=== PATIENT | female | born 1945 | race Caucasian/White ===

== ENCOUNTER → 2016-11-13 | Outpatient (CLI) | payer OTHER | LOC: BMCIMAGING 15:13 | PROVIDERS: ATTEND Family Medicine | DX: Z12.31 Encounter for screening mammogram for malignant neoplasm of breast (principal) | CPT/HCPCS: G0202 ==

== ENCOUNTER → 2017-06-27 | Outpatient (CLI) | payer OTHER | LOC: FIMAGING 13:58 | DX: M41.84 Other forms of scoliosis, thoracic region (principal); M41.86 Other forms of scoliosis, lumbar region; M40.294 Other kyphosis, thoracic region; M47.892 Other spondylosis, cervical region ==

== ENCOUNTER → 2017-09-22 | Outpatient (CLI) | payer OTHER | LOC: FIMAGING 10:39 | PROVIDERS: ATTEND Orthopaedic Surgery | DX: Z01.818 Encounter for other preprocedural examination (principal); M16.0 Bilateral primary osteoarthritis of hip ==

== ENCOUNTER 2017-10-13 06:02 | Inpatient (IN) | payer OTHER ==
[~2017-10-13 06:02] MED LIST: ROPIVACAINE 0.2% 80 MG, EPINEPHrine 0.2 MG, KETOROLAC TROMETHAMINE 30 MG, morphINE 10 M... IU ONE; TRANEXAMIC ACID 1,000 MG in NS 100 ML IV ONE
[2017-10-13] MEDS ORDERED: FAMOTIDINE 20 MG TAB PO ONE (06:06)
[2017-10-13] MEDS ORDERED: ceFAZolin 2 GM/DEXTROSE 100 ML IV ONE (06:06)
[2017-10-13] MEDS ORDERED: ACETAMINOPHEN 325 MG TAB PO ONE (06:06)
[2017-10-13] MEDS ORDERED: LR 1,000 ML IV ONE (06:07)
[2017-10-13] MEDS ORDERED: LIDOCAINE 1% 2 ML INJ ID PRN (06:07)
--- NOTE | 2017-10-13 06:31 | PDHPUP ---
History & Physical Update H&P update statement: This history and physical update is based on an assessment of the patient which was completed after admission or registration (within 24 hours), but prior to the surgery/procedure. H&P update: no change in patient's condition since H&P completed
--- NOTE | 2017-10-13 06:32 | PDIAF ---
- Diagnosis Diagnosis: right hip djd Code Status: Full Code - Medication Management Discharge Medications: Medications to Continue on Transfer Alendronate Sodium [Fosamax 70 MG (*)] 70 mg PO SA@0700 09/29/17 [Last Taken Unknown] Cholecalciferol Vit D3 [Vitamin D3 (*)] 1,000 units PO DAILY 09/29/17 [Last Taken Unknown] Magnesium Oxide [Magnesium Oxide 400 mg (*)] 400 mg PO DAILY 09/29/17 [Last Taken Unknown] Multivitamins [Multivitamin (*)] 1 each PO DAILY 09/29/17 [Last Taken Unknown] Sertraline HCl [Zoloft 50mg (*)] 50 mg PO DAILY 09/29/17 [Last Taken Unknown] Warfarin Sodium [Coumadin 2MG (*)] 2 mg PO DAILY 09/29/17 [Last Taken Unknown] Warfarin Sodium [Coumadin 5MG (*)] 5 mg PO DAILY 09/29/17 [Last Taken Unknown] celeCOXIB [CeleBREX] 100 mg PO TID 09/29/17 [Last Taken Unknown] Discharge Medications: Refer to the Discharge Home Medication list for PRN reason. - Orders Services needed: Physical Therapy Diet Recommendation: no restrictions on diet Diet Texture: Regular Texture Diet Additional Instructions: TOTAL JOINT ARTHROPLASTY DISCHARGE INSTRUCTIONS 1. Your surgeon follows the [facility] protocol for reducing your risk of DVT (blood clots) following surgery. Medication will be ordered to prevent blood clots. A sudden increase in calf pain and/or swelling could indicate a blood clot in your leg. If this occurs, please call your surgeon or his/her insurance claims assistant. An ultrasound of the leg may be necessary to diagnose a blood clot. If you have conditions that make you a higher risk for blood clots, your surgeon may use more aggressive ways to prevent them. Notify your surgeon if you think you are a high risk for blood clots. 2. Wear your white surgical stockings (LAURA hose) for 2 weeks. This decreases your swelling and may help prevent blood clots. It is ok to remove LAURA hose at night time to give your legs a break. 3. Swelling and bruising in the surgical leg is common. If you feel that it is excessive, please notify your surgeon. 4. Elevate your surgical leg with the ankle above the hip several times every day. Please keep the leg straight when you elevate by putting pillows under your foot. Do not put pillows under your knee. This will make being able to fully straighten more difficult. This is uncomfortable, but try to do it as much as possible. 5. For total knee replacements use compressive wrap on your knee for 3-5 days after surgery, then you can discontinue it. 6. Use a walker or crutches for 1-2 weeks. Progress your weight-bearing as tolerated. You may start to use a cane when you feel stable and safe. 7. You will receive physical therapy instructions in the hospital. Continue those exercises at home. There are additional exercises in the total joint booklet you were given before surgery. Outpatient physical therapy will begin 7- 10 days after surgery. Please schedule this in advance. 8. Use ice on your knee at least 3-5 times every day for 30 minutes. This helps reduce pain and swelling. Also use it at night before falling asleep. 9. Leave your surgical dressing in place for 2 weeks. Your dressing is water resistant, but not waterproof. Cover it with Saran Wrap or Eisgg-s-Rjrj before showering. You may shower as soon as you feel safe entering a shower. If you notice bleeding from your incision 2 or 3 days after surgery, please notify your surgeon. 10. Due to narcotics, decreased activity and altered diet, most patients experience constipation after surgery. Use aplt-fnw-qyzzzjk stool softeners while you are on narcotics. 11. You may drive a car when you are comfortable bearing weight, have good muscular control of your leg and are off narcotics. This usually occurs 2-4 weeks after surgery, depending on which leg was operated on. 12. If there are questions not addressed here, please refer the [facility] book given for more information. If you still have questions, please contact your surgeon s office. 13. If you have a life-threatening emergency, please call 911 and go to the emergency room immediately. For non-life threatening emergencies, please call your physicians office for advice before going to the emergency room. - Follow Up Care Current Providers and Referrals: German Foley MD [Medical Doctor] - Nusrat Rodriguez MD [Primary Care Provider] -
[2017-10-13] MEDS ORDERED: ceFAZolin 1 GM/5 ML SYR ONE ×2 (06:44→08:03)
[2017-10-13] MEDS ORDERED: MIDAZOLAM 2 MG/2 ML VIAL ONE (07:03)
[2017-10-13] MEDS ORDERED: PROPOFOL 200 MG/20 ML VIAL ONE (07:04)
[2017-10-13] MEDS ORDERED: LIDOCAINE 2% 5 ML SDV ONE (07:04)
--- NOTE | 2017-10-13 07:08 | PDANEPAE ---
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 - Pulmonary History Hx COPD: No Hx Asthma/Reactive Airway Disease: No Hx Recent Upper Respiratory Infection: No Hx Oxygen in Use at Home: No Hx Sleep Apnea: No Sleep Apnea Screening Result - Last Documented: Negative - Neurologic History Hx Cerebrovascular Accident: No Hx Seizures: No Hx Dementia: No - Endocrine History Hx Diabetes: No - Renal History Hx Renal Disorders: No - Liver History Hx Hepatic Disorders: No - Neurological & Psychiatric Hx Hx Neurological and Psychiatric Disorders: Yes Neurological / Psychiatric History Comment: depression - Cancer History Hx Cancer: No - Congenital Disorder History Hx Congenital Disorders: No - GI History Hx Gastrointestinal Disorders: No - Other Health History Other Health History: compression in lower thoracic region. scoliosis - Chronic Pain History Chronic Pain: Yes (lower thoracic and lumbar regions) - Surgical History Prior Surgeries: achilles tendon repair 2017 ANE Review of Systems Review of Systems: - Exercise capacity METS (RN): 4 METS ANE Patient History - Allergies Allergies/Adverse Reactions: bee venom protein (honey bee) Allergy (Verified 10/03/17 10:44) Other-Enter Comments cat dander Allergy (Verified 10/03/17 10:44) Other-Enter Comments - Home Medications Home Medications: Alendronate Sodium [Fosamax 70 MG (*)] 70 mg PO SA@0700 09/29/17 [Last Taken ] Cholecalciferol Vit D3 [Vitamin D3 (*)] 1,000 units PO DAILY 09/29/17 [Last Taken 10/06/17] Magnesium Oxide [Magnesium Oxide 400 mg (*)] 400 mg PO DAILY 09/29/17 [Last Taken 10/06/17] Multivitamins [Multivitamin (*)] 1 each PO DAILY 09/29/17 [Last Taken 10/06/17] Sertraline HCl [Zoloft 50mg (*)] 50 mg PO DAILY 09/29/17 [Last Taken 10/12/17 09 :00] Warfarin Sodium [Coumadin 2MG (*)] 2 mg PO DAILY 09/29/17 [Last Taken 10/06/17] Warfarin Sodium [Coumadin 5MG (*)] 5 mg PO DAILY 09/29/17 [Last Taken 10/06/17] celeCOXIB [CeleBREX] 100 mg PO TID 09/29/17 [Last Taken 10/06/17] - NPO status NPO Since - Liquids (Date): 10/12/17 NPO Since - Liquids (Time): 22:00 NPO Since - Solids (Date): 10/12/17 NPO Since - Solids (Time): 21:00 - Smoking Hx Smoking Status: Never smoked - Family Anes Hx Family Hx Anesthesia Complications: none ANE Labs/Vital Signs - Vital Signs Blood Pressure: 149/68 Heart Rate: 92 Respiratory Rate: 16 O2 Sat (%): 96 Height: 167.64 cm Weight: 56.699 kg ANE Physical Exam - Airway Neck exam: FROM Mallampati Score: Class 1 Mouth exam: normal dental/mouth exam - Pulmonary Pulmonary: no respiratory distress, no rales or rhonchi, clear to auscultation - Cardiovascular Cardiovascular: regular rate and rhythym, no murmur, rub, or gallop ANE Anesthesia Plan Anesthesia Plan: spinal
[2017-10-13 07:12] LABS: INR 0.87 (0.83-1.16)
[2017-10-13] MEDS ORDERED: PHENYLEPHRINE HCL 100 MCG/ML SYR ONE (07:34)
[2017-10-13] MEDS ORDERED: fentaNYL 100 MCG/2 ML INJ IVP PRN (07:40)
[2017-10-13] MEDS ORDERED: LR 500 ML IV PRN (07:40)
[2017-10-13] MEDS ORDERED: BUPIVACAINE/DEXTROSE 7.5MG/ML 2 ML SPINAL AMP SP ONE (07:40)
[2017-10-13] MEDS ORDERED: PHENYLEPHRINE HCL 100 MCG/ML SYR IVP PRN (07:40)
[2017-10-13] MEDS ORDERED: ONDANSETRON 4 MG/2 ML VIAL IVP PRN ×2 (07:40→08:48)
[2017-10-13] MEDS ORDERED: NALOXONE HCL 0.4 MG/ML INJ IVP PRN (07:40)
[2017-10-13] MEDS ORDERED: DEXAMETHASONE 4 MG/ML VIAL IVP PRN (07:40)
[2017-10-13] MEDS ORDERED: ALBUTEROL 3 ML DEYVIAL IH PRN (07:40)
[2017-10-13] MEDS ORDERED: POLYETHYLENE GLYCOL 3350 17 GM PKT PO PRN (08:48)
[2017-10-13] MEDS ORDERED: ONDANSETRON DISINTEGRATING 4 MG TAB PO PRN (08:48)
[2017-10-13] MEDS ORDERED: LACTULOSE 20 GM/30 ML UDCUP PO PRN (08:48)
[2017-10-13] MEDS ORDERED: TEMAZEPAM 15 MG CAP PO PRN (08:48)
[2017-10-13] MEDS ORDERED: DIPHENOXYLATE/ATROPINE LOMOTIL 1 TAB PO PRN (08:48)
[2017-10-13] MEDS ORDERED: oxyCODONE IR 5 MG TAB PO PRN (08:48)
[2017-10-13] MEDS ORDERED: PROMETHAZINE HCL 25 MG/ML INJ IVP PRN (08:48)
[2017-10-13] MEDS ORDERED: MAGNESIUM HYDROXIDE 30 ML UDCUP PO PRN (08:48)
[2017-10-13] MEDS ORDERED: BISACODYL 10 MG SUPP PR PRN (08:48)
[2017-10-13] MEDS ORDERED: PROMETHAZINE HCL 25 MG SUPPR PR PRN (08:48)
[2017-10-13] MEDS ORDERED: diphenhydrAMINE 25 MG CAP PO PRN (08:48)
[2017-10-13] MEDS ORDERED: METOCLOPRAMIDE 10 MG/2 ML VIAL IVP PRN (08:48)
--- NOTE | 2017-10-13 08:52 | POSTOPPROG ---
Post Op Note Date of Operation: 10/13/17 Surgeon: German Foley Plastic Joint Maker: carrington Anesthesiologist: yari Anesthesia: Spinal Pre-op Diagnosis: right hip djd Post-op Diagnosis: same Indication: same Procedure: right abigail Inf/Abcess present in the surg proc area at time of surgery?: No Depth: Deep Incisional (Fascial) EBL: 100-500
[2017-10-13] MEDS ORDERED: WARFARIN SODIUM 5 MG TAB PO SCH (09:00)
[2017-10-13] MEDS: MAGNESIUM OXIDE 400 MG TAB PO SCH (09:00)
[2017-10-13] MEDS ORDERED: LR 1,000 ML IV SCH (09:00)
[2017-10-13] MEDS ORDERED: WARFARIN SODIUM 2 MG TAB PO SCH (09:00)
[2017-10-13] MEDS: TRANEXAMIC ACID 650 MG TAB PO SCH ×2 (09:53→18:16)
[2017-10-13] MEDS: SERTRALINE HCL 50 MG TAB PO SCH (09:53)
[2017-10-13] MEDS: MULTIVITAMINS 1 EACH TAB PO SCH (09:53)
[2017-10-13] MEDS: SENNOSIDES/DOCUSATE SODIUM TAB PO SCH ×2 (09:53→20:30)
[2017-10-13] MEDS: CHOLECALCIFEROL VIT D3 1,000 UNITS TAB PO SCH (09:53)
--- NOTE | 2017-10-13 10:49 | PDMN ---
Medical Necessity Medical necessity: IP surgery per [facility] cpt [id number]
[2017-10-13] MEDS: traMADol 50 MG TAB PO PRN ×2 (10:50→20:30)
--- NOTE | 2017-10-13 11:30 | POSTANESTH ---
Post Anesthetic Evaluation Cardiovascular Status: Normal, Stable, Similar to Pre-Op Cond Respiratory Status: Normal, Stable, Similar to Pre-op Cond. Level of Consciousness/Mental Status: Can Participate in Eval Pain Control: Adequate, Prn Tx Ordered Nausea/Vomiting Control: Adequate, Prn Tx Ordered Complications Possibly Related to Anesthesia: None Noted
[2017-10-13] MEDS: CYCLOBENZAPRINE 10 MG TAB PO PRN ×2 (12:07→20:30)
[2017-10-13] MEDS: ACETAMINOPHEN 325 MG TAB PO SCH ×2 (13:59→18:13)
[2017-10-13] MEDS: ceFAZolin 2 GM/DEXTROSE 100 ML IV SCH ×2 (14:00→22:19)
[2017-10-13] MEDS: FAMOTIDINE 20 MG TAB PO SCH (20:29)
[2017-10-13] MEDS ORDERED: ASPIRIN 325 MG TAB PO SCH (21:00)
[2017-10-14] MEDS: ACETAMINOPHEN 325 MG TAB PO SCH ×2 (00:14→05:38)
[2017-10-14] MEDS: TRANEXAMIC ACID 650 MG TAB PO SCH (00:14)
--- NOTE | 2017-10-14 07:33 | PDIAF ---
- Diagnosis Diagnosis: right hip djd Code Status: Full Code - Medication Management Discharge Medications: Medications to Continue on Transfer Alendronate Sodium [Fosamax 70 MG (*)] 70 mg PO SA@0700 09/29/17 [Last Taken ] Cholecalciferol Vit D3 [Vitamin D3 (*)] 1,000 units PO DAILY 09/29/17 [Last Taken 10/06/17] Magnesium Oxide [Magnesium Oxide 400 mg (*)] 400 mg PO DAILY 09/29/17 [Last Taken 10/06/17] Multivitamins [Multivitamin (*)] 1 each PO DAILY 09/29/17 [Last Taken 10/06/17] Sertraline HCl [Zoloft 50mg (*)] 50 mg PO DAILY 09/29/17 [Last Taken 10/12/17 09 :00] Warfarin Sodium [Coumadin 2MG (*)] 2 mg PO DAILY 09/29/17 [Last Taken 10/06/17] Warfarin Sodium [Coumadin 5MG (*)] 5 mg PO DAILY 09/29/17 [Last Taken 10/06/17] celeCOXIB [CeleBREX] 100 mg PO TID 09/29/17 [Last Taken 10/06/17] Enoxaparin [Lovenox 40 MG (*)] 40 mg SC DAILY #5 syr 10/14/17 [Last Taken Unknown] oxyCODONE IR [Oxycodone Ir (*)] 5 - 10 mg PO Q3HRS PRN #40 tab 10/14/17 [Last Taken Unknown] traMADol [Ultram 50 mg (*)] 50 mg PO Q6HRS PRN #60 tab 10/14/17 [Last Taken Unknown] Discharge Medications: Refer to the Discharge Home Medication list for PRN reason. - Orders Services needed: Physical Therapy Diet Recommendation: no restrictions on diet Diet Texture: Regular Texture Diet Additional Instructions: TOTAL JOINT ARTHROPLASTY DISCHARGE INSTRUCTIONS 1. Your surgeon follows the [facility] protocol for reducing your risk of DVT (blood clots) following surgery. Medication will be ordered to prevent blood clots. A sudden increase in calf pain and/or swelling could indicate a blood clot in your leg. If this occurs, please call your surgeon or his/her payroll human resources assistant. An ultrasound of the leg may be necessary to diagnose a blood clot. If you have conditions that make you a higher risk for blood clots, your surgeon may use more aggressive ways to prevent them. Notify your surgeon if you think you are a high risk for blood clots. 2. Wear your white surgical stockings (LAURA hose) for 2 weeks. This decreases your swelling and may help prevent blood clots. It is ok to remove LAURA hose at night time to give your legs a break. 3. Swelling and bruising in the surgical leg is common. If you feel that it is excessive, please notify your surgeon. 4. Elevate your surgical leg with the ankle above the hip several times every day. Please keep the leg straight when you elevate by putting pillows under your foot. Do not put pillows under your knee. This will make being able to fully straighten more difficult. This is uncomfortable, but try to do it as much as possible. 5. For total knee replacements use compressive wrap on your knee for 3-5 days after surgery, then you can discontinue it. 6. Use a walker or crutches for 1-2 weeks. Progress your weight-bearing as tolerated. You may start to use a cane when you feel stable and safe. 7. You will receive physical therapy instructions in the hospital. Continue those exercises at home. There are additional exercises in the total joint booklet you were given before surgery. Outpatient physical therapy will begin 7- 10 days after surgery. Please schedule this in advance. 8. Use ice on your knee at least 3-5 times every day for 30 minutes. This helps reduce pain and swelling. Also use it at night before falling asleep. 9. Leave your surgical dressing in place for 2 weeks. Your dressing is water resistant, but not waterproof. Cover it with Saran Wrap or Kzjsn-l-Shfq before showering. You may shower as soon as you feel safe entering a shower. If you notice bleeding from your incision 2 or 3 days after surgery, please notify your surgeon. 10. Due to narcotics, decreased activity and altered diet, most patients experience constipation after surgery. Use vndc-ghb-epryfbc stool softeners while you are on narcotics. 11. You may drive a car when you are comfortable bearing weight, have good muscular control of your leg and are off narcotics. This usually occurs 2-4 weeks after surgery, depending on which leg was operated on. 12. If there are questions not addressed here, please refer the [facility] book given for more information. If you still have questions, please contact your surgeon s office. 13. If you have a life-threatening emergency, please call 911 and go to the emergency room immediately. For non-life threatening emergencies, please call your physicians office for advice before going to the emergency room. - Follow Up Care Current Providers and Referrals: German Foley MD [Medical Doctor] - Nusrat Rodriguez MD [Primary Care Provider] -
[2017-10-14 07:35] VITALS: BP 111/54
--- NOTE | 2017-10-14 07:37 | SOAPPROG ---
SOAP Progress Note Assessment/Plan: Assessment: s/p right abigail Plan:stable d/c home when cleared by pt dvt precautions reviewed will use lovenox for 5 days and restart coumadin 10/14/17 07:34 Subjective: doing well no focal complaints no cp or sob Objective: Vital Signs Temp Pulse Resp BP Pulse Ox 36.5 C 85 16 124/53 H 89 L 10/14/17 04:00 10/14/17 04:00 10/14/17 04:00 10/14/17 04:00 10/14/17 04:00 Laboratory Results 10/14/17 04:39 10/13/17 10/14/17 10/15/17 05:59 05:59 05:59 Intake Total 3485 Output Total 1550 Balance 1935 PT 12.0 SEC (12.0-15.0) 10/13/17 06:50 INR 0.87 (0.83-1.16) 10/13/17 06:50 dressing changed intact pfdf,ehl toes warm and pink neg homans kaci xrays stable no fx, concentric reduction ICD10 Worksheet Patient Problems: Problems Problem Status Onset Hip arthritis Acute - ICD10 Problem Qualifiers (1) Hip arthritis
--- NOTE | 2017-10-14 08:52 | ASMTLACE ---
IVIS Length of stay for Answers: 2 days current admission Acuity / Level of Answers: Yes Care: Did the patient have an inpatient admission? Comorbidities - select Answers: Coronary Artery Disease all that apply Opioid dependence / Chronic pain # of Emergency department Answers: 0 visits in the last 6 months Social determinants Answers: Mental health diagnosis (anxiety, depression, pers onality disorders, etc.) Score: 14 Date Signed: 10/14/2017 08:51 AM Electronically Signed By:Rosetta Rehman
[2017-10-14] MEDS ORDERED: WARFARIN SODIUM 2 MG TAB PO SCH (09:00)
[2017-10-14] MEDS ORDERED: WARFARIN SODIUM 5 MG TAB PO SCH (09:00)
[2017-10-14] MEDS ORDERED: ENOXAPARIN 40 MG/0.4 ML SYR SC SCH (09:00)
[2017-10-14] MEDS: SENNOSIDES/DOCUSATE SODIUM TAB PO SCH (09:12)
[2017-10-14] MEDS: SERTRALINE HCL 50 MG TAB PO SCH (09:12)
[2017-10-14] MEDS: CHOLECALCIFEROL VIT D3 1,000 UNITS TAB PO SCH (09:12)
[2017-10-14] MEDS: MULTIVITAMINS 1 EACH TAB PO SCH (09:13)
[2017-10-14] MEDS: MAGNESIUM OXIDE 400 MG TAB PO SCH (09:13)
[2017-10-14] MEDS: FAMOTIDINE 20 MG TAB PO SCH (09:13)
[2017-10-14] MEDS ORDERED: PNEUMOC 13-VAL CONJ-DIP CRM/PF 0.5 ML SYR IM ONE (10:24)
[2017-10-14] MEDS: traMADol 50 MG TAB PO PRN (10:51)
--- NOTE | 2017-10-14 15:57 | ASDISCHSUM ---
Discharge Information Plan Status:Home with Home Health Medically Cleared to Leave: Discharge Date:10/14/2017 11:27 AM D/C Disposition:Home Health Service ADT D/C Disposition:Home, Routine, Self-Care Projected Discharge Date:10/14/2017 11:00 AM Transportation at D/C: Discharge Delay Reason: Follow-Up Date:10/14/2017 11:00 AM Discharge Slot: Final Diagnosis: Placement Information Referral Type:*Home Health Care Services Referral ID:[id number] Provider Name:[facility] [place] Address 1:[address] [place] [address] Address 2: City:[place] Selection Factors: State:[place] Patient Contact Information Contact Name:ELVA Relationship:Friend Address:[address] [place] [address] Work Phone: City:[place] Alternate Phone: State/Zip Code:[place] [address] Email: Financial Information Financial Class:Medicare Primary Plan Desc:MEDICARE INPATIENT Primary Plan Number:[id number] Secondary Plan Desc:FRANSICO RODRIGUEZ PPO [employer]IV [employer] Secondary Plan Number:[id number] Assessment Information LACE LACE Length of stay for Answers: 2 days current admission Acuity / Level of Answers: Yes Care: Did the patient have an inpatient admission? Comorbidities - select Answers: Coronary Artery Disease all that apply Opioid dependence / Chronic pain # of Emergency department Answers: 0 visits in the last 6 months Social determinants Answers: Mental health diagnosis (anxiety, depression, pers onality disorders, etc.) Score: 14 Date Signed: 10/14/2017 08:51 AM Electronically Signed By:Rosetta Remhan [facility] CM Progress Note CM Note CM Note Notes: PT rec home care. Pt medically stable for d/c with [facility]. Orders sent in [employer]. Date Signed: 10/14/2017 03:56 PM Electronically Signed By:LAURENT Alarcon Intervention Information
--- NOTE | 2017-10-14 15:57 | ASMTCMCOM ---
CM Note CM Note Notes: PT rec home care. Pt medically stable for d/c with [facility]. Orders sent in [employer]. Date Signed: 10/14/2017 03:56 PM Electronically Signed By:LAURENT Alarcon
[2017-10-18] MEDS ORDERED: ALENDRONATE SODIUM 70 MG TAB PO SCH (07:00)
--- NOTE | 2017-10-29 08:22 | GDS ---
[f rep st] DISCHARGE SUMMARY DATE OF PROCEDURE: 10/13/2017. ATTENDING PHYSICIAN: German Foley MD. DATABASE MANAGEMENT SYSTEM SPECIALIST: Justin Velez. ADMIT DIAGNOSIS: Right hip degenerative joint disease. DISCHARGE DIAGNOSIS: Right hip degenerative joint disease. PROCEDURE: Right total hip arthroplasty - MAKOplasty. HISTORY OF PRESENT ILLNESS: The patient is a 72-year-old woman with end-stage arthritis to her right hip. She presents for elective total hip replacement. HOSPITAL COURSE: The patient was admitted overnight. She had no complications. At the time of disc harge, she was tolerating an oral diet. Pain was well controlled on oral medicines. She is voiding without difficulty. Dressing is clean, dry, and intact. She has no calf swelling or tenderness. X- rays are stable without fracture, displacement and concentric reduction. DISCHARGE ACTIVITY: Weightbearing as tolerated. Anterior hip precautions. Daily dressing changes. May shower without the bandage. No soaking or immersion. Follow up in 2 weeks. Seek attention for increasing redness, swelling, drainage, discharge, or other focal complaints. /[id number]/MODL
--- NOTE | 2017-10-29 08:27 | GOP ---
[f rep st] OPERATIVE REPORT DATE OF OPERATION: 10/13/2017 SURGEON: German Foley MD NEUROSURGEON: German Foley MD ROOFING SALES REPRESENTATIVE: Shahzad Velez, POWDERMAN, [facility], rn medical surgical who was medical necessity for the entirety of the case. PREOPERATIVE DIAGNOSIS: Right hip degenerative joint disease. POSTOPERATIVE DIAGNOSIS: Right hip degenerative joint disease. PROCEDURE PERFORMED: Right total hip arthroplasty, MAKOplasty. FINDINGS: SPECIMENS: To Pathology, the femoral head. INDICATIONS: The patient is a 72-year-old woman with end-stage arthritis to her right hip. She has failed all attempts at conservative management. I have therefore recommended total hip replacement. I have outlined the surgical procedure, risks, benefits, and alternatives. She wished to proceed. Written consent was signed and placed in patient's chart. DESCRIPTION OF PROCEDURE: The patient was identified in the preanesthesia area. The right hip clear ly demarcated as the operative site with indelible marker. She was given 2 g of Ancef intravenously en route to the operative suite. In the OR, a spinal anesthetic was placed followed by sedation. e was positioned in the supine position. All bony prominences were well padded, including use of a b ump posterior to her right hip. Appropriate time-out procedure was carried out. Both pelvis and low er extremities were sterilely prepped and draped in usual fashion. Attention was first turned to the left pelvis. A 2 cm incision was made over the iliac crest. Three pins were then placed and the pe lvic reference array affixed. Attention was then turned to the right hip. An anterior approach was made. This carried sharply through the skin, subcutaneous tissue. The fascia of the tensor fascia l shivam was opened in the origin of its fibers. The tensor retracted in a lateral direction. The underl kandace vascular structures identified, ligated, cauterized, and transected. The rectus elevated off th e capsule. Retractors were placed into an extracapsular position. A T was made in the capsule and r etractors were then placed in an intracapsular position. There was gross arthritic change. Pelvic a cetabular checkpoint was then placed, and a bone wedge was removed from the femoral neck and head was removed. The contents of the acetabulum were sharply excised. All the bony landmarks were entered into the computer in standard fashion, and using a MAKOplasty robotic guidance, a resection was made with a 52 mm acetabular reamer. A 52 mm cup was then placed, confirmed to be appropriately positione d and secured, and a Trident X3, 0 degree liner was placed with a 36 mm inner liner diameter. Attent ion was then turned to the femur. This was delivered through extension of the table, soft tissue rel eases, and retractor placement. The proximal canal was opened. Serial broaching was carried out to a size 5 stem. A trial reduction with 127 degree neck angle, hip stem size 5 was placed, and ultimat kristen a 36 mm -5 mm neck length Biolox head was selected. This restored appropriate leg lengths, was s table through the flexion-extension arc. Stable with full extension, external rotation of 90 degrees . The final head was then placed. The hip was copiously irrigated and the hip was reduced. The stab ility profile was as previous. The wound was then injected with a joint cocktail of ropivacaine, mor phine, Toradol, and epinephrine. The fascia closed using 0 Vicryl, subcutaneous tissue using 2-0 Mon ocryl, and the skin was stapled. Sterile dressing was applied. The patient was awakened, extubated, taken to recovery room in good stable condition. TOTAL TOURNIQUET TIME: None. COMPLICATIONS: None. IMPLANTS: Ames Tritanium acetabular shell, size 52 mm; Trident X3, 0 degree polyethylene insert; and Accolade II 127 degree neck angle, stem size 5, and a 36 mm -5 mm Biolox head. DISPOSITION: To the recovery room, then the floor. She is weightbearing, range of motion as tolerat ed with anterior hip precautions. /[id number]/MODL
== END 2017-10-14 11:27 | disposition home health service (06) | DRG 470 ==
LOC: F3N 06:02
PROVIDERS: ADMIT Orthopaedic Surgery; ATTEND Orthopaedic Surgery
PROC: 0SR904Z Replacement of Right Hip Joint with Ceramic on Polyethylene Synthetic Substitute, Open Approach (ICD-10-PCS; principal; 2017-10-13 07:15)
DX: M16.11 Unilateral primary osteoarthritis, right hip (principal); R00.2 Palpitations; I73.9 Peripheral vascular disease, unspecified; Z23 Encounter for immunization; Z86.718 Personal history of other venous thrombosis and embolism; Z79.01 Long term (current) use of anticoagulants
CPT/HCPCS: 97116-GP; 97161-GP; 97165-GO; G0009; G8978-GP-CI; G8978-GP-CK; G8979-GP-CI; G8979-GP-CJ; G8980-GP-CI; G8987-GO-CI; G8988-GO-CI; G8989-GO-CI; J0171; J0690; J1650; J1885; J2250; J2270; J2370; J2704; J2795

== ENCOUNTER → 2017-11-26 | Outpatient (CLI) | payer OTHER | DX: Z47.1 Aftercare following joint replacement surgery (principal); Z96.641 Presence of right artificial hip joint ==

== ENCOUNTER → 2017-12-01 | Outpatient (CLI) | payer OTHER | LOC: FIMAGING 10:14 | PROVIDERS: ATTEND Internal Medicine Rheumatology | DX: Z09 Encounter for follow-up examination after completed treatment for conditions other than malignant neoplasm (principal); Z87.39 Personal history of other diseases of the musculoskeletal system and connective tissue ==

== ENCOUNTER → 2018-02-09 | Outpatient (CLI) | payer OTHER | LOC: BMCIMAGING 10:01 | PROVIDERS: ATTEND Orthopaedic Surgery | DX: Z47.1 Aftercare following joint replacement surgery (principal); Z96.641 Presence of right artificial hip joint; M16.12 Unilateral primary osteoarthritis, left hip ==

== ENCOUNTER → 2018-02-12 | Outpatient (CLI) | payer OTHER | LOC: BMCIMAGING 09:15 | PROVIDERS: ATTEND Internal Medicine | DX: I82.522 Chronic embolism and thrombosis of left iliac vein (principal); I82.512 Chronic embolism and thrombosis of left femoral vein; Z95.828 Presence of other vascular implants and grafts ==

== ENCOUNTER → 2018-05-05 | Outpatient (CLI) | payer OTHER | LOC: BMCIMAGING 12:53 | PROVIDERS: ATTEND Internal Medicine | DX: I82.522 Chronic embolism and thrombosis of left iliac vein (principal) ==

== ENCOUNTER → 2018-05-27 | Outpatient (CLI) | payer OTHER | LOC: BMCIMAGING 13:50 | PROVIDERS: ATTEND Orthopaedic Surgery | DX: Z47.1 Aftercare following joint replacement surgery (principal); Z96.641 Presence of right artificial hip joint; M16.12 Unilateral primary osteoarthritis, left hip ==

== ENCOUNTER → 2018-09-10 | Outpatient (CLI) | payer OTHER | LOC: FIMAGING 10:14 ==

== ENCOUNTER 2018-09-28 05:59 | Inpatient (IN) | payer OTHER | END 2018-09-29 12:51 | disposition home health service (06) | LOC: F3N 05:59 ==